=== PATIENT | male | born 1975 | race Caucasian/White ===

== ENCOUNTER 2025-03-30 17:46 | Emergency (ER) | payer SELFPAY ==
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
[2025-03-30 18:49] VITALS: BP 143/57
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
== END 2025-03-30 18:48 | disposition home or self-care (01) ==
LOC: EMR 17:46
PROVIDERS: EMERGENCY PHYSICIAN Emergency Medicine; FAMILY PHYSICIAN Internal Medicine
DX: S49.92XA Unspecified injury of left shoulder and upper arm, initial encounter (principal); X58.XXXA Exposure to other specified factors, initial encounter; Y93.89 Activity, other specified; Y99.0 Civilian activity done for income or pay
CPT/HCPCS: 99283; 73030

== ENCOUNTER 2025-06-02 18:25 | Emergency (ER) | payer BC, SELFPAY ==
[2025-06-02 18:32] VITALS: BP 151/90
[2025-06-02 18:54] LABS: Hematocrit 40.8 % (39.0-52.0); Hemoglobin 14.2 g/dL (13.0-18.0); Mean Corp Hgb Conc. 34.8 g/dL (33.0-37.0); Mean Corpuscular Volume 83.8 fL (80.0-94.0); Nucleated Red Blood Cells % 0 % (-); Platelet Count 188 10^3/uL (130-400); Red Cell Dist. Width 13.2 % (11.5-14.5)
[2025-06-02 19:09] LABS: ALT (SGPT) 27 U/L (0-50); AST (SGOT) 26 U/L (17-59); Albumin 3.6 g/dl (3.5-5.0); Alkaline Phosphatase 46 U/L (38-126); Blood Urea Nitrogen 27 mg/dl (9-20); Calcium 8.9 mg/dl (8.4-10.2); Carbon Dioxide 27 mmol/L (22-30); Chloride 108 mmol/L (98-107); Glucose 88 mg/dl (70-99); Potassium 3.9 mmol/L (3.5-5.1); Sodium 135 mmol/L (135-145); Total Protein 5.6 g/dl (6.3-8.2)
[2025-06-02 19:19] LABS: eGFR 34.17
[2025-06-02 19:20] LABS: Troponin I 0.014 ng/ml
[2025-06-02 20:00] VITALS: BP 119/74
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
[2025-06-02] MEDS: LOPRESSOR 25 MG PO (20:38)
[2025-06-02] MEDS: ELIQUIS 5 MG PO (20:38)
== END 2025-06-02 21:03 | disposition home or self-care (01) ==
LOC: EMR 18:25
PROVIDERS: Emergency Medicine; EMERGENCY PHYSICIAN Emergency Medicine; FAMILY PHYSICIAN Internal Medicine
DX: I48.91 Unspecified atrial fibrillation (principal); Z79.890 Hormone replacement therapy
CPT/HCPCS: 99284; 80053; 84443; 84484; 85025; 93005